=== PATIENT | male | born 1965 | race Caucasian/White ===

== ENCOUNTER 2019-04-01 08:25 | Emergency (ER) | payer OTHER ==
[~2019-04-01] VITALS: Ht 177.8 cm; Wt 102.1 kg
[2019-04-01 08:32] VITALS: Ht 177.8 cm; Wt 102.1 kg
[2019-04-01 09:04] LABS: BASOPHIL % 0.1 % (0-2); PLATELET COUNT 208 x10^3mcL (130-400); RED CELL DISTRIBUTION WIDTH 13.4 % (11.5-14.5)
[2019-04-01 09:22] LABS: CALCIUM 9.1 mg/dL (8.5-10.1); CARBON DIOXIDE 29.5 mmol/L (21-32); CHLORIDE SERUM 102 mmol/L (98-107); CREATININE SERUM 1.2 mg/dL (0.7-1.3); GFR1 > 60 mL/min; GLUCOSE SERUM 137 mg/dL (74-106); POTASSIUM SERUM 3.9 mmol/L (3.5-5.1); SODIUM SERUM 141 mmol/L (136-145)
[2019-04-01 09:26] LABS: ALBUMIN 3.8 g/dL (3.4-5.0); ALKALINE PHOSPHATASE 60 U/L (46-116); ALT/SGPT 44 U/L (16-63); AST/SGOT 22 U/L (15-37); LIPASE 76 IU/L (73-393); TOTAL PROTEIN, SERUM 7.4 g/dL (6.4-8.2)
[2019-04-01 10:15] VITALS: BP 151/93
== END 2019-04-01 10:15 | disposition home or self-care (01) ==
LOC: ED 08:25
PROVIDERS: Emergency Medicine
DX: K29.70 Gastritis, unspecified, without bleeding (principal)
CPT/HCPCS: 36415; J2270; Q0092; Q0162

== ENCOUNTER 2019-05-26 13:57 | Inpatient (IN) | payer OTHER ==
[~2019-05-26] VITALS: Ht 177.8 cm; Wt 99.8 kg
--- NOTE | 2019-05-26 15:08 | NUR ---
PATIENT PRESENTS TO ED WITH C/O ABDOMINAL PAIN THAT THE PATIENT DESCRIBES SHARP AND BURNING. STS HE HAS VOMITTED 5X TODAY AND MULTIPLE TIMES YESTERDAY. STS HE CAME TO ED IN APRIL FOR TREATMENT, BUT FELT NO RELIEF IN SIGHT. STS THE PAIN IS SITUATED IN IN ALL [address] HEREDIA PERFORMED MSE
--- NOTE | 2019-05-26 15:31 | NUR ---
PATIENT SENT TO CT
--- NOTE | 2019-05-26 15:41 | NUR ---
PT BACK FROM CT
--- NOTE | 2019-05-26 15:55 | NUR ---
PT RESTING AT BEDSIDE IN NAD. LIGHTS DIMMED AND BLANKET PROVIDED TO PROMOTE PATIENT COMFORT
[2019-05-26 15:57] LABS: BASOPHIL % 0.4 % (0-2); PLATELET COUNT 297 x10^3mcL (130-400); RED CELL DISTRIBUTION WIDTH 14.1 % (11.5-14.5)
[2019-05-26 16:04] LABS: UA SPECIFIC GRAVITY 1.025 (1.005-1.035); microscopic required? YES; urine erythrocyte 1+ (NEGATIVE)
[2019-05-26 16:24] LABS: ALBUMIN 4.1 g/dL (3.4-5.0); ALKALINE PHOSPHATASE 78 U/L (46-116); ALT/SGPT 50 U/L (16-63); AST/SGOT 13 U/L (15-37); BILIRUBIN TOTAL 0.77 mg/dL (0.20-1.00); CALCIUM 9.7 mg/dL (8.5-10.1); CARBON DIOXIDE 26.7 mmol/L (21-32); CHLORIDE SERUM 101 mmol/L (98-107); GFR1 > 60 mL/min; GLUCOSE SERUM 121 mg/dL (74-106); LIPASE 75 IU/L (73-393); SODIUM SERUM 140 mmol/L (136-145); TOTAL PROTEIN, SERUM 8.2 g/dL (6.4-8.2)
[2019-05-26 16:26] LABS: POTASSIUM SERUM 2.9 mmol/L (3.5-5.1)
--- NOTE | 2019-05-26 16:29 | NUR ---
PT RESTING AT BEDSIDE IN NAD. PATIENT STS HIS PAIN HAS DECREASED TO 5/10 AND STS THE PAIN IS MORE TOLERABLE. PATIENT IN NAD
[2019-05-26] MEDS ORDERED: DYRENIUM50 MG (17:05)
--- NOTE | 2019-05-26 17:47 | NUR ---
REPORT OFF TO NELLY MAXWELL
--- NOTE | 2019-05-26 18:00 | NUR ---
RECEIVED PT FROM ED VIA [facility], CAME IN DUE TO INCREASING ABDOMINAL PAIN SINCE YESTERDAY, STATED THAT HE HAD INTERMITTENT ABDOMINAL PAIN SINCE APRIL. AAOX4. DENIES HEADACHE/DIZZINESS. NO SOB NOTED, O2 SAT=95%, RA. DENIES CHEST PAIN/PRESSURE. STATED THAT HE HAS 9/10 LEFT ABDOMINAL PAIN DESCRIBED SHARP. ABDOMEN IS SOFT. STATED THAT HE WAS CONSTIPATED YESTERDAY AND HAD DIARRHEAL EPISODE TODAY. STATED THAT HE HAS INTERMITTENT BLOOD STOOLS EVERY TIME HE GOES BM X2 MONTHS. C/O DRY MOUTH. VOIDS. IV SITE ON THE LAC IS PATENT AND INTACT. SIDE RAILS UPX2. CALL LIGHT ON REACH. BEDSIDE REPORT GIVEN TO LAZARO FOR CONTINUITY OF CARE.
[2019-05-26 18:08] VITALS: BP 162/86
[2019-05-26 18:19] VITALS: Ht 177.8 cm; Wt 99.8 kg
[2019-05-26 18:20] LABS: MAGNESIUM 2.1 mg/dL (1.8-2.4); PHOSPHOROUS 3.5 mg/dL (2.5-4.9)
[2019-05-26 18:27] LABS: AMPHETAMINE QUAL UR NONE DETECTED (See below); T3 TOTAL 1.4 ng/mL
[2019-05-26 19:17] LABS: FREE T4 1.24 ng/dL (0.76-1.46); FREE THYROXINE INDEX 3.7 ug/dL (1.4-4.5); T4(THYROXINE) 9.8 ug/dL (4.7-13.3)
--- NOTE | 2019-05-26 19:25 | NUR ---
RECEIVED PT FROM PREVIOUS SHIFT NURSE. PT AOX3. DENIES HERMAN/DIZZINESS AT THIS TIME. TELE #[id number], READING ST WITH FIRST DEGREE BLOCK, HR 115. DENIES SOB/DIFFICULTY BREATHING, ON RA. IV TO LAC, INTACT AND PATENT. BED IN LOWEST POSITION. CALL LIGHT WITHIN REACH. WILL CONTINUE TO MONITOR.
[2019-05-26 21:19] VITALS: BP 159/94
--- NOTE | 2019-05-27 03:32 | NUR ---
PT RESTING IN BED. RR EVEN AND UNLABORED. IN NO ACUTE DISTRESS. CALL LIGHT WITHIN REACH. BED IN LOWEST POSITION. WILL CONTINUE TO MONITOR.
--- NOTE | 2019-05-27 05:13 | NUR ---
PT BP 162/90 HR 73, RATING PAIN 8/10 IN ABD. MEDICATED FOR PAIN PER EMAR. WILL CONTINUE TO MONITOR.
[2019-05-27 05:57] VITALS: BP 162/90
--- NOTE | 2019-05-27 06:23 | NUR ---
PT WORSENING PAIN, MEDICATED PER EMAR. BP 174/92. DR. ROBBINS PAGED. AWAITING CALL BACK.
[2019-05-27 06:52] LABS: PLATELET COUNT 259 x10^3mcL (130-400); RED CELL DISTRIBUTION WIDTH 14.4 % (11.5-14.5)
[2019-05-27 07:10] LABS: CALCIUM 8.7 mg/dL (8.5-10.1); CARBON DIOXIDE 27.1 mmol/L (21-32); CHLORIDE SERUM 106 mmol/L (98-107); GFR1 > 60 mL/min; GLUCOSE SERUM 131 mg/dL (74-106); POTASSIUM SERUM 3.8 mmol/L (3.5-5.1); SODIUM SERUM 142 mmol/L (136-145)
--- NOTE | 2019-05-27 07:10 | NUR ---
RECEIVED PATIENT RESTING IN BED COMFORTABLY WITH EYES CLOSED, EASILY AROUSABLE TO VERBAL STIMULI A/O X4. DENIES CHEST PAIN, BREATHING EVEN AND UNLABBORED ON ROOM AIR, DENIES SOB, NO DISTRESS NOTED. BS ACTIVE X4, DENIES N/V, BUT DID C/O SHARP/BURNING ABD PAIN 07/11, STATES PAIN IS TOLERABLE AT THIS TIME, MEDICATED IN AM BY NOC NURSE. IV TO LAC INTACT INFUSING NS AT 100 ML/HR FREE FROM REDNESS AND INFILTRATION. PATIENT IS CALM WITH CARE. INSTRUCTED TO CALL FOR ASSISTANCE IF NEEDED. SAFETY PRECAUTIONS MAINTAINED. WILL MONITOR.
[2019-05-27 07:44] LABS: BASOPHIL % 0 % (0-2)
[2019-05-27 08:50] VITALS: BP 157/90
[2019-05-27] MEDS ORDERED: HCTZ/TRIAMTEREN1 CA1 PO (08:52)
--- NOTE | 2019-05-27 08:52 | NUR ---
PATIENT RESTING IN BED COMFORTABLY, NO DISTRESS NOTED. AT BEDSIDE. UPDATED PATIENTS MED REC. ALL QUESTIONS AND CONCERNS ADDRESSED. SAFETY PRECAUTIONS MAINTAINED.
--- NOTE | 2019-05-27 10:05 | NUR ---
DR. URIBE AT BEDSIDE TO SPEAK WITH AND ASSESS PATIENT. PT TO MAINTAIN NPO STATUS FOR ULTRASOUND ABDOMEN LIMITED. PATIENT VERABALIZED UNDERSTANDING, ALL QUESTIONS AND CONCERNS ADDRESSED. SAFETY PRECAUTIONS MAINTAINED. WILL MONITOR.
--- NOTE | 2019-05-27 10:20 | NUR ---
PATIENT C/O SHARP ABD PAIN 07/11, MEDICATED WITH NORCO PO (SEE eMAR). DR. URIBE AT BEDSIDE TO SPEAK WITH PATIENT AND NOREEN REGARDING PLANS FOR EGD TOMORROW MORNING, ALL QUESTIONS AND CONCERNS ADDRESSED, CONSENTS OBTAINED AND SIGNED.
--- NOTE | 2019-05-27 14:19 | NUR ---
PATIENT RESTING IN BED COMFORTABLY WITH EYES CLOSED, BREATHING EVEN AND UNLABBROED ON ROOM AIR, NO DISTRESS NOTED. WILL MONITOR.
--- NOTE | 2019-05-27 14:35 | NUR ---
PATIENT C/O SHARP MID ABD PAIN 10/10, MEDICATED WITH MORPHINE IVP. ALL NEEDS ATTENDED TO, SAFETY PRECAUTIONS MAINTAINED. WILL MONITOR.
--- NOTE | 2019-05-27 16:00 | NUR ---
PATIENT RESTING IN BED COMFORTABLY WITH EYES CLOSED, NO DISTRESS NOTED, FAMILY AT BEDSIDE. NPO STATUS MAINTAINED PENDING US ABD, CALLED ULTRASOUND REGARDING ETA BUT NO ANSWER, WILL TRY AGAIN.
--- NOTE | 2019-05-27 16:05 | NUR ---
ULTRASOUND AT BEDSIDE.
--- NOTE | 2019-05-27 16:51 | NUR ---
PATIENT C/O SHARP MID ABD PAIN 07/11, MEDICATED WITH NORCO PO (SEE eMAR). ALL NEEDS ATTENDED TO, SAFETY PRECAUTIONS MAINTAINED. WILL MONITOR. FAMILY AT BEDSIDE.
--- NOTE | 2019-05-27 17:04 | NUR ---
RECEIVED TELEPHONE CALL FROM DR. URIBE- PATIENT UPDATE GIVEN. INFORMED DR. URIBE US ABD RESULTS ARE NOT IN YET EXAM WAS JUST DONE ABOUT 15 MINUTES AGO. RECEIVED T.O FROM DR. URIBE TO PLACE PATIENT ON A CLEAR LIQUID DIET FOR DINNER AND THEN NPO AFTER MIDNIGHT FOR EGD TOMORROW MORNING. WILL CARRY OUT ORDER AND UPDATE PATIENT. ALL QUESTIONS AND CONCERNS ADDRESSED.
[2019-05-27 17:46] VITALS: BP 154/93
--- NOTE | 2019-05-27 18:33 | NUR ---
CALLED DR. URIBE AND MADE HIM AWARE OF US ABD RESULTS. PER DR. URIBE CONSULT SURGEON FOR GALLSTONES AND IF NO SURGERY ORDER HIDA SCAN IN AM, KEEP PATIENT NPO AFTER MIDNIGHT. DR. THOMPSON MADE AWARE OF THE ABOVE. WILL NOTIFY PATIENT WELL.
--- NOTE | 2019-05-27 18:38 | NUR ---
PATIENT RESTING COMFORTABLY IN BED, UPDATED WITH PLAN OF CARE, DAUGHTER AT BEDSIDE. ALL QUESTIONS AND CONCERNS ADDRESSED. IV TO LAC INTACT INFUSING IVF WELL FREE FROM REDNESS AND INFILTRATION. ALL NEEDS ATTENDED TO DURING SHIFT, SAFETY PRECAUTIONS MAINTAINED. WILL ENDORSE CARE TO ONCOMING NURSE.
--- NOTE | 2019-05-27 19:15 | NUR ---
RECEIVED PT FROM DAY SHIFT RN. PT RESTING IN BED WITH FAMILY AT THE BEDSIDE. PT IS AA&o X 4 AND ABLE TO FOLLOW COMMANDS. PT DENIES SHORTNESS OF BREATH ON ROOM AIR NO USE OF ACCESSORY MUSCLES OR LABORED BREATHING ON ASSESSMENT. BOWEL SOUNDS ARE ACTIVE. PT COMPLAINTS OF MINOR PAIN IN ABD REGION BUT STATES THAT IT IS TOLERABLE AT THIS TIME. LAST BM 05/26. PT AWARE OF NEED FOR STOOL CULTURE AND TO CALL WHEN HE HAS A BM. PT IS AMBULATORY WITH MINIMAL ASSIST. NS RUNNING THROUGH THE LAC. IV CDI AT THIS TIME. PT AWAITING CONSULT FROM FRANKY. NPO FOR POSSIBLE PROCEDURE. SAFETY MEASURES IN PLACE. CALL LIGHT WITHIN REACH. WILL CONTINUE TO MONITOR.
--- NOTE | 2019-05-27 21:16 | NUR ---
PT RESTING IN BED WITH EYES CLOSED. NO DISTRESS NOTED AT THIS TIME.
[2019-05-27 21:27] VITALS: BP 147/82
[2019-05-28 05:18] VITALS: BP 148/92
[2019-05-28 07:00] LABS: CALCIUM 9.2 mg/dL (8.5-10.1); CHLORIDE SERUM 101 mmol/L (98-107); CREATININE SERUM 0.9 mg/dL (0.7-1.3); GFR1 > 60 mL/min; GLUCOSE SERUM 111 mg/dL (74-106); MAGNESIUM 1.9 mg/dL (1.8-2.4); PHOSPHOROUS 2.9 mg/dL (2.5-4.9); POTASSIUM SERUM 3.2 mmol/L (3.5-5.1); SODIUM SERUM 137 mmol/L (136-145)
[2019-05-28 07:31] LABS: BASOPHIL % 0 % (0-2); PLATELET COUNT 240 x10^3mcL (130-400); RED CELL DISTRIBUTION WIDTH 14.2 % (11.5-14.5)
--- NOTE | 2019-05-28 07:53 | NUR ---
PT TAKEN SOEN FOR EGD.
--- NOTE | 2019-05-28 08:05 | NUR ---
RECIEVED PT RESTING IN BED WITH NO C/O DISTRESS OR SOB AT THIS TIME. AT BEDSIDE. PT STATES PAIN IS TOLERABLE AND NO PAIN MEDICATION IS REQUESTED. A/O X4 WITH NO HERMAN OR DIZZINESS. LUNGS CTA. PT AMBULATORY. LAC INTACT AND PATENT WITH NO REDNESS OR INFLAMMATION. RUNNING 100ML/NS .SAFETY PRECAUTIONS IN PLACE, CALL LIGHT WITHIN REACH, WILL MONITOR.
--- NOTE | 2019-05-28 09:30 | NUR ---
DR ESCOTO AT BEDSIDE WITH PT DISCUSSING POC. AT BEDSIDE.
--- NOTE | 2019-05-28 09:31 | NUR ---
PT BACK FROM EGD PROCEDURE
[2019-05-28 17:22] VITALS: BP 138/89
--- NOTE | 2019-05-28 18:00 | NUR ---
PT TAKEN DOWN TO SURGERY BY OR TECH. CHECKLIST COMPLETE AND CONSENT FOR SURGERY SIGNED. ANASTHESIA CONSENT TO BE SIGNED IN OR ROOM. ALL PRE-OP COMPLETED.
--- NOTE | 2019-05-28 18:58 | NUR ---
PT CURRENTLY IN SURGERY. PT TOLERATED ALL CARES WELL. IV WAS INTACT AND PATENT WHEN LEFT TO SURGERY. WILL ENDORSE TO NIGHT NURSE
--- NOTE | 2019-05-28 19:15 | NUR ---
RECEIVED REPORT FROM DAYSHIFT NURSE, PT STILL IN OR AT THIS TIME. WILL WAIT FOR REPORT FORM OR.
[2019-05-28 22:23] LABS: PLATELET COUNT 240 x10^3mcL (130-400); RED CELL DISTRIBUTION WIDTH 14.4 % (11.5-14.5)
[2019-05-28 22:29] LABS: CALCIUM 8.2 mg/dL (8.5-10.1); CARBON DIOXIDE 24.3 mmol/L (21-32); CHLORIDE SERUM 103 mmol/L (98-107); GFR1 > 60 mL/min; GLUCOSE SERUM 141 mg/dL (74-106); POTASSIUM SERUM 3.8 mmol/L (3.5-5.1); SODIUM SERUM 139 mmol/L (136-145)
[2019-05-28 22:33] LABS: BAND NEUTROPHIL 1 % (0-10); MONOCYTE 4 % (0-7); SEGMENTED NEUTROPHILS 90 % (37-75)
[2019-05-28 22:34] LABS: ALKALINE PHOSPHATASE 53 U/L (46-116); ALT/SGPT 105 U/L (16-63); AST/SGOT 106 U/L (15-37); BILIRUBIN TOTAL 1.5 mg/dL (0.20-1.00); PLATELET MORPHOLOGY PLATELETS NORMAL; rbc morphology (normal/abnorm) NORMAL (NORMAL)
[2019-05-28 22:47] LABS: ALBUMIN 2.6 g/dL (3.4-5.0)
--- NOTE | 2019-05-28 23:30 | NUR ---
RECEIVED PT FROM OP, PT APPEARS GROGGY BUT ABLE TO ANSWER QUESTIONS. PER OR, PT HAD ATTEMPTED RE WHICH CONVERTED TO OPEN W/ INTRAOP CHOLEANGIOGRAM. PT UNDER SX WITH GENERAL ANESTHESIA, WITH 5 ABD INCISIONS. PER OR TEAM (D/T PT ABD COVERED WITH TELFA 4X4 AND "MEDIPORT" DSG) PT HAS ONE LARGE INCISION CLOSED WITH SUTURES AND CHERI, THREE SMALL INCISIONS ALSO CLOSED WITH SUTURES AND CHERI COVRED WITH BANDAIDS. CDI. ONE INCISION FOR KELLE DRAIN WHICH WAS PLACED CONNECTED TO A BULB SUCTION WITH DARK RED RSECRETIONS NOTED (OR TEAM EMPTIED 25ML FROM BULB). DRAIN SPONGE IN PLACE. PT HAD SHERMAN CATH REMOED POST OP WITH 325ML OUTPUT. PT RECEIVED A DOSE OF ZOSYN IN OR, 3.3L LR IN TOTAL. OF CONCERN, PT HAS EBL= 1200 WITH NO BLOOD TRANSFUSION PERFORM. STAT CBC ORDERED WITH H/H= 14.2/40. PT SKIN APPROPRIATE FOR ETHNICITY. EXTREMITIES WARM AND CAP REFILL < 3SEC. PT RECEIVED DILAUDID 2MG IV X 3 DOSES IN OR FOR SEVERE PAIN WELL TORADOL 30MG IV X1 AND DEMORAL 25MG IVP X2. PT DESATURATED PER OR TEAM WHICH IS WHY PT IS ON 4LNC. WILL ATTEMPT TO WEAN OFF LATER WHEN ANESTHESIA WEARS OFF D/T PT HAS SHALLOW BREATHING WITH O2 SAT= 95% ON 4LNC. SUPPORTIVE FAMILY AT BEDSIDE, ALL QUESTIONS AND CONCERNS ADDRESSED, CALL LIGHT WITHIN REACH, BED IN LOWEST POSITION, WILL CONTINUE TO MONITOR.
[2019-05-28 23:45] VITALS: BP 122/71
--- NOTE | 2019-05-28 23:45 | NUR ---
PT REPORTING NAUSEA, MEDICATED WITH ZOFRAN 4MG IVP, IV SITE PATENT TO THE RT WRIST WHICH WAS INSERTED IN OR, NO REDNESS, SWELLING OR PAIN NOTED. WILL CONTINUE TO MONITOR.
[2019-05-29] VITALS (10 sets, daily range): BP systolic 109–126; BP diastolic 63–79
--- NOTE | 2019-05-29 05:05 | NUR ---
PT RESTED IN INTERVALS DURING SHIFT, NO ACUTE CHANGES OCCURRING OVERNIGHT. PT MEDICATED X2 WITH MORPHINE FOR SEVERE PAIN S/P OPEN RE. PT REMAINS ON 2LNC, WILL ATTEMPT TO WEAN OFF THIS AM. PT KELLE DRAINED 35ML SANGANEOUS FLUID, PT HAS NOT PASSED GAS OR VOIDED YET SINCE SURGERY. EDUCATED PT TO NOTIFY NURSE IF HE PASSES GAS WHICH IS A GREAT SIGN S/P ABD SURGERY. PT VERBALIZES UNDERSTANDING. IV SITE REMAINS PATENT TO RT WRIST, D5 1/2 NS @ 125ML/HR. NO REDNESS, SWELLING OR PAIN NOTED. PT TOLERATING ANTIBIOTICS WELL. ABD DSG REMAINS CDI. ALL COMFORT AND SAFETY MEASURES PROVIDED FOR, CALL LIGHT WITHIN REACH, BED IN LOWEST POSITION, WILL CONTINUE TO MONITOR.
[2019-05-29 06:25] LABS: PLATELET COUNT 241 x10^3mcL (130-400); RED CELL DISTRIBUTION WIDTH 13.6 % (11.5-14.5)
[2019-05-29 06:49] LABS: ALKALINE PHOSPHATASE 62 U/L (46-116); ALT/SGPT 142 U/L (16-63); AST/SGOT 140 U/L (15-37); BILIRUBIN TOTAL 0.76 mg/dL (0.20-1.00); CALCIUM 8.5 mg/dL (8.5-10.1); CARBON DIOXIDE 24.6 mmol/L (21-32); CHLORIDE SERUM 102 mmol/L (98-107); GFR1 > 60 mL/min; GLUCOSE SERUM 153 mg/dL (74-106); POTASSIUM SERUM 3.9 mmol/L (3.5-5.1); SODIUM SERUM 137 mmol/L (136-145); TOTAL PROTEIN, SERUM 6.2 g/dL (6.4-8.2)
[2019-05-29 06:53] LABS: ALBUMIN 2.5 g/dL (3.4-5.0)
[2019-05-29 07:01] LABS: BASOPHIL % 0 % (0-2)
[2019-05-29 07:04] LABS: MAGNESIUM 1.8 mg/dL (1.8-2.4); PHOSPHOROUS 4.3 mg/dL (2.5-4.9)
--- NOTE | 2019-05-29 07:40 | NUR ---
RECEIVED PT FROM FRAME STYLIST RN. A/OX4. MED SURG. DENIES CHEST PAIN/PRESSURE. RESPIRATIONS EQUAL AND UNLABORED ON RA. DENIES SOB. PT C/O ABDOMINAL PAIN TO RUQ OPERATIVE SITE. MEDICATED PER EMAR. DRESSING TO RUQ CDI, NO DRAINAGE NOTED. KELLE DRAIN X1 DRAINING SEROSANGINEOUS DRAINAGE. IV TO RH PATENT AND INFUSING. NO REDNESS OR SWELLING NOTED. PT DENIES ANY N/V AT THIS TIME. WILL CONTINUE TO MONITOR. CALL LIGHT IN REACH. BED IN LOWEST POSITION.
--- NOTE | 2019-05-29 08:44 | NUR ---
PT SITTING UP IN BED. NO ACUTE RESP DISTRESS NOTED ON 2L NC. PT C/O OF ABDOMINAL PAIN SHARP TO OPERATIVE SITE. DRESSING CDI. MEDICATED PER EMAR. FAMILY AT BEDSIDE. IV PATENT AND INFUSING TO RT WRIST. NO REDNESS OR SWELLING NOTED. WILL CONTINUE TO MONITOR. CALL LIGHT IN REACH. BED IN LOWEST POSITION.
--- NOTE | 2019-05-29 09:26 | NUR ---
PT SITTING UP IN BED. NO ACUTE RESP DISTRESS NOTED ON RA. PT STATES PAIN HAS IMPROVED SINCE RECEIVING NOROC, BUT IS INCREASING. IV FLUIDS INFUSING ORDERED. NO REDNESS OR SWELLING NOTED. PT GIVEN PO MEDS. TOLERATED WELL. PT STATES HE ATE A LITTLE BIT OF BREAKFAST. PT DENIES ANY NAUSEA AT THIS TIME. WILL CONTINUE TO MONITOR. CALL LIGHT IN REACH. BED IN LOWEST POSITION.
--- NOTE | 2019-05-29 10:53 | NUR ---
PT SITTING UP IN BED. PT DENIES ANY SOB AT THIS TIME. PT ASKING IF HE CAN HAVE NC REMOVED. PT PLACED ON RA. NO ACUTE RESP DISTRESS NOTED. PT C/O ABDOMINAL PAIN SHARP TO OPERATIVE SITE. MEDICATED PER EMAR. IV TO RH FLUSHED WELL. PATENT AND INFUSING. NO REDNESS OR SWELLING NOTED. WILL CONTINUE TO MONITOR. CALL LIGHT IN REACH. BED IN LOWEST POSITION.
--- NOTE | 2019-05-29 12:06 | NUR ---
PT SITTING UP IN BED. PT C/O INCREASING ABDOMINAL PAIN TO RUQ. PT ENCOURAGED TO AMBULATE TO HELP PASS GAS AND ALIEVIATE PRESSURE. PT AMBULATED TO BATHROOM AND AROUND THE ROOM. TOLERATED WELL. NO ACUTE RESP DISTRESS NOTED ON RA. PT ENCOURAGED TO AMBULATE TOLERATED. WILL CONTINE TO MONITOR. CALL LIGHT IN REACH. BED IN LOWEST LOCKED POSITION.
--- NOTE | 2019-05-29 12:27 | NUR ---
PATIENT WAS SEEN UP IN THE HALLWAY WALKING SLOWLY BUT STEADY, DENIES DIZZINESS. PATIDARIANN REPORTS HE HAS BE BURPING BUT NOT PASSED GAS YET. ABLE TO AMBULATE TO RESTROOM WHERE HE REPORTED HE URINATED WITHOUT PAIN. ADMINSTERED MEDICATIONS PER JAN. PATIENT COMPLAINING OF PAIN TO THE ABDOMEN. CANNOT MEDICATED WITH NORCO UNTIL 1240. PATIENT RESTING IN BED. FAMILY AT BEDSIDE, CALL LIGHT WITHIN REACH
--- NOTE | 2019-05-29 12:43 | NUR ---
ADMINISTERED NORCO PER PAIN, FAMILY AT BEDSIDE, ENCOURAGED USE OF INSENTIVE SPIROMETE. PALL LIGHT WITHIN REACH
--- NOTE | 2019-05-29 14:22 | NUR ---
PATIENT STILL EXPEREINCEING PAIN IN HIS ABDOMEN, DRESSING CDI, ABD SOFT AND SLIGHTLY DISTENDED. CANNOT ADMNISTER PAIN MEDICATION AT THIS TIME UNTIL 1450. PATIENT REQUESTING MORPHINE AT THIS TIME. FAMILY AT BEDSIDE AND CALL LIGHT WITHIN REACH
--- NOTE | 2019-05-29 15:04 | NUR ---
ADMINISTERED MORPHINE PER PRN ORDER. ASLO ADMINISTERED ZOFRAN FOR NAUSEA. INFOMRED PATIENT I WOULD REASSES PAIN IN 30 MIN, AT THAT TIME PATIENT NEEDS TO GET UP TO AMBULATE. PATIENT REPORTS THAT HE HAS PASSED A LITTLE GAS AND HAS BEEN BURPING
--- NOTE | 2019-05-29 16:49 | NUR ---
PATIENT COMPLAININ GOF 07/11 PAINN TO THE ABD. ADMINISTERED NORCO PER JAN. WILL REASSESS PAIN IN 1 HOUR. PATIENT SITTING UP IN BED WITH FAMILY MEMBER AT BEDSIDE
--- NOTE | 2019-05-29 18:21 | NUR ---
PATIENT WILL RECEIVED HIDA SCAN AT [phone] TOMORROW AND MUST BE NPO AFTER MIDNIGHT AND CANNOT RECEIVE OPIATES. INFOMRED PATIENT, CHARGE NURSE AND WILL INFORM NOC NURSE
--- NOTE | 2019-05-29 18:53 | NUR ---
PATIENT ASLEEP AT THIS TIME, INFORMED FAMILY THAT PATIENT CAN HAVE PAIN MEDICATION LAST DOSE 4 HOURS BEFORE HIS PROCEDURE.
--- NOTE | 2019-05-29 19:56 | NUR ---
PT RECIEVED AAO WITH FAMILY AT THE BEDSIDE,IV INFUSING WELL WITH THE SITE PATENT AND INTACT,ABDO IS SOFT WITH ACTIVE BOWEL SOUNDS DRESSING ON THE ABDO IS CDI,PATIENT BEING ENCOURAGE TO AMBULATE,PT WITH C/O OF ABDO PAIN CRAMPING IN NATURE AT THE SCALE OF 5/10,PT WAS MEDICATED WITH NORCO 1 TAB PO ORDER, BED IN THE LOW POSITION AND LOCKED,CALL LIGHT EASY REACHED AND WILL CONTINUE TO MONITOR.
--- NOTE | 2019-05-29 20:06 | NUR ---
PT AMBULATING IN THE HALLWAY WITH THE FAMILY AT THIS TIME.
--- NOTE | 2019-05-29 21:56 | NUR ---
PT PASSING GAS AND BURPING WILL CONTINUE TO MONITOR.
--- NOTE | 2019-05-30 01:13 | NUR ---
PT SLEEPING SOUNDLY AND WILL CONTINUE TO MONITOR.
--- NOTE | 2019-05-30 05:07 | NUR ---
PT AMBULATING IN THE HALLWAY,PT NPO FOR THE PROCEDURE THIS AM HIDA SCAN AWARE AND COOPERATIVE,WILL CONTINUE TO MONITOR AND
[2019-05-30 06:03] VITALS: BP 141/82
[2019-05-30 06:22] LABS: PLATELET COUNT 246 x10^3mcL (130-400); RED CELL DISTRIBUTION WIDTH 14.1 % (11.5-14.5)
[2019-05-30 06:55] LABS: ALKALINE PHOSPHATASE 61 U/L (46-116); ALT/SGPT 112 U/L (16-63); AST/SGOT 58 U/L (15-37); BILIRUBIN TOTAL 0.67 mg/dL (0.20-1.00); CALCIUM 8.8 mg/dL (8.5-10.1); CARBON DIOXIDE 26.4 mmol/L (21-32); CHLORIDE SERUM 104 mmol/L (98-107); CREATININE SERUM 1.1 mg/dL (0.7-1.3); GFR1 > 60 mL/min; GLUCOSE SERUM 134 mg/dL (74-106); MAGNESIUM 1.9 mg/dL (1.8-2.4); PHOSPHOROUS 2.8 mg/dL (2.5-4.9); POTASSIUM SERUM 3.5 mmol/L (3.5-5.1); SODIUM SERUM 144 mmol/L (136-145)
--- NOTE | 2019-05-30 07:05 | NUR ---
RECEIVED HAND OFF REPORT FROM ADDIE MORAN NURSE. PATIENT FOUND SITTING UP AWAKE IN BED. TRANSPORT CAME WITH WHEELCHAIR TO TAKE PATIENT FOR HIDA SCAN. PATIENT WAS REPORTED NPO AFTER MIDNIGHT AND HAS NOT HAD OPIOIDS IN LAST 4 HOURS. SALING LOCK TO RIGHT HADNA ND LEFT AC. PATIENT AMBULATED TO RESTROOM WHERE HE VOIDED AND SAT IN WHEELCHAIR. OFF UNIT AT THIS TIME
[2019-05-30 07:19] LABS: BASOPHIL % 0 % (0-2)
[2019-05-30 07:20] LABS: ALBUMIN 2.9 g/dL (3.4-5.0); TOTAL PROTEIN, SERUM 6.1 g/dL (6.4-8.2)
[2019-05-30 10:15] VITALS: BP 127/81
--- NOTE | 2019-05-30 10:15 | NUR ---
PATIETN VISUALISED RESTING SUPINE IN BED AT THIS TIME. EYES CLOSED, BREATHING STEADY AND UNLABORED. APPARENTLY ASLEEP. NO FAMILY BEDSIDE, CALL LIGHT WITHIN REACH.
--- NOTE | 2019-05-30 13:34 | NUR ---
DR HOFF CALLED AND ASKED ABOUT PATIENT, ASKED GURWINDER RESULTS OF HIDA SCAN, INFOMRED DR THAT SCAN RESULTS HWERE NOT AVAILABLE YET. HE SAID TO CALL RADIOLOGY AND HAVE THEM REVIWE THE SACN STAT. THEN TO CALL HIM WITH THE RESULTS. CALLED RADIOLOGY AND NO ANSWER
--- NOTE | 2019-05-30 13:44 | NUR ---
PATIENT IV IN RIGHT HAND LEAKING. CHANGED FKUID TO LEFT AC IV. FLUSHES WELL. PATIENT COMPLAINING OF PAIN 06/10 TO ABD, REQUESTED NORCO. WILL REASSESS PAIN IN 1 HOUR AFTER PAIN MEDICATION
--- NOTE | 2019-05-30 14:00 | NUR ---
RADIOLOGY INFORMED THAT DR HOFF REQUESTING HIDA SCAN REPORT STAT. RESULTS FAXED TO US AND REPORT PRINTED.
--- NOTE | 2019-05-30 15:12 | NUR ---
SECOND ATTEMPT TO PAGE DR HOFF FOR RESULT OF HIDA SCAN.
--- NOTE | 2019-05-30 16:25 | NUR ---
SPOKE WITH DR ESCOTO ABOUT PENDING ORDERS FOR STOOL TESTS, DECIDED TO DC ORDERS.
[2019-05-30 17:15] VITALS: BP 137/88
--- NOTE | 2019-05-30 17:18 | NUR ---
ADMINISTERED MEDICATIONS PER MAR, PATIENT COMPLAINING OF 9/10 ABD PAIN, REQUESTED NORCO. FAMILY AT BEDSIDE.
--- NOTE | 2019-05-30 18:19 | NUR ---
CALLED DR HOFF AND READ HIM RESULT OF HIDA SCAN THAT WERE FAXED TO [facility]. RESULTS STILL AREN'T AVAILABLE ONLINE. DR HOFF GAVE ORDERS TO D/C KELLE DRAIN ON 05/31 IN AM, PATIENT IS CLEAR FOR D/C TOMORROW AND RECOMMENDED TO D/C PATIENT ON LEVOQUIN AND FLAGYL PO. DR THOMPSON NOTIFIED ALL THE ABOVE.
--- NOTE | 2019-05-30 20:00 | NUR ---
RECIEVED HAND OFF REPORT FROM NURSE NAHEED. PT IS A/OX4. PT IS MED SURG, DENIES ANY CHEST PAIN OR SOB AT THIS TIME. NO EDEMA NOTED , PULSES ARE PALPABLE. PT IS ON RA, LUNG SOUNDS ARE CLEAR BILATERALLY. BREATHES ARE EVEN AND UNLABORED. PT BOWEL SOUNDS ARE HYPOACTIVE, LAST MB 05/26, ABD IS DISTENDED AND SOFT. PT IS C/O F PAIN IN ABD AREA, WILL MEDICATE PER MD ORDERS. PT VOIDS. PT AMBULATORY WITH MINOR MILD WEAKNESS. PT AB INSCION CDI, KELLE FRAINAGE INTACT, NO OUTPUT NOTED. ABD INCISION COVERED WITH BANDAID, TELFA, AND MEDIPORT TAPE ALL OVER IN PLACE. PT HAS IV TO LAC INFUSING WELL, IV TO RW S/L. CALL LIGHT WITHIN REACH, WILL CONTINUE TO MONITOR.
--- NOTE | 2019-05-30 20:45 | NUR ---
PT AMBULATING HALLS WITH FAMILY MEMBERS AT THIS TIME. GAIT STEADY. NO ACUTE DISTRESS OBSERVED. IVF INFUSING WELL. WILL CONTINUE TO MONITOR
[2019-05-30 21:10] VITALS: BP 149/86
--- NOTE | 2019-05-31 00:38 | NUR ---
PT IN BED ASLEEP. EASILY AROUSABLE TO VERBAL COMMANDS. PT DENIES OF ANY PAIN AT THIS TIME. CALL LIGHT WITHIN REACH. WILL CONTINUE TO MONITOR.
--- NOTE | 2019-05-31 06:17 | NUR ---
PT SLEPT THROUGH THE NIGHT. NO RESP DISTRESS NOTED. PT C/O OD ABD PAIN RECEIVED NORCO X2. PT KELLE DRAINAGE OUTPUT 65 ML COLOR WAS PINK, CLAMP TO BULB SUCTION. PT IV TO THE LAC INFUSING WELL, CDI. PT WAS COOPERATIVE WITH NURSING CARE.
[2019-05-31 06:19] VITALS: BP 147/91
[2019-05-31 06:51] LABS: BASOPHIL % 0.3 % (0-2); PLATELET COUNT 318 x10^3mcL (130-400); RED CELL DISTRIBUTION WIDTH 13.8 % (11.5-14.5)
[2019-05-31 07:08] LABS: CALCIUM 9.6 mg/dL (8.5-10.1); CARBON DIOXIDE 26.8 mmol/L (21-32); CHLORIDE SERUM 103 mmol/L (98-107); CREATININE SERUM 0.9 mg/dL (0.7-1.3); GFR1 > 60 mL/min; GLUCOSE SERUM 120 mg/dL (74-106); MAGNESIUM 2.1 mg/dL (1.8-2.4); PHOSPHOROUS 3.8 mg/dL (2.5-4.9); SODIUM SERUM 142 mmol/L (136-145)
--- NOTE | 2019-05-31 07:40 | NUR ---
A+OX4, NO RESPIRATORY DISTRESS NOTED, MEDSURG, PULSES MODERATE AND EQUAL, NO EDEMA NOTED, LUNG SOUNDS CTA, TOLERATING RA, BOWEL SOUNDS HYPOACTIVE, KELLE DRAIN= 100 ML SEROSANGINOUS FLUID EMPTIED FROM DRAIN, DR ESCOTO NOTIFIED, VOIDING FREELY, GENERALIZED WEAKNESS, AMBUALTORY, ABD INCISION X5, 3 COVERED WITH BAND AIDS, ENTIRE ABD COVERED IN DRESSING WITH TAPE, CDI, IV IN LAC INFUSING D5 1/2 NS @ 50 ML/HR, SITE WNL, IV IN RW WRIST SALINE LOCKED, SITE WNL.
--- NOTE | 2019-05-31 07:48 | NUR ---
DR ESCOTO STATES SHE WILL SPEAK TO DR HOFF ABOUT 1OO ML FLUID DRAINED FROM KELLE DRAIN AND DO NOT REMOVE THE KELLE DRAIN UNTIL SHE CONFIRMS WITH DR HOFF.
[2019-05-31 08:38] VITALS: BP 137/90
--- NOTE | 2019-05-31 09:39 | NUR ---
PT RESTING IN BED, NO RESPIRATORY DISTRESS NOTED, STATES ABD PAIN TOLERABLE AT THIS TIME, CALL LIGHT WITHIN REACH, AT BEDSIDE.
--- NOTE | 2019-05-31 09:48 | NUR ---
PER DR ESCOTO, DR HOFF STATED TO LEAVE KELLE DRAIN IN AND PT NOT TO DC TODAY.
[2019-05-31] MEDS ORDERED: LEVAQUIN750 MG PO (10:05)
[2019-05-31] MEDS ORDERED: FLA500 PO (10:07)
--- NOTE | 2019-05-31 10:18 | NUR ---
100 ML SEROSANGUINOUS FLUID EMPTIED FROM KELLE DRAIN.
--- NOTE | 2019-05-31 11:03 | NUR ---
PT COMPLAINING OF 8/10 ABD PAIN, NORCO PO GIVEN, NO RESPRIATORY DISTRESS NOTED, PT REQUESTING TO HAVE LACTINEX AND ZOSYN GIVEN NOW BECAUSE HE WOULD LIKE TO TAKE A NAP. CALL LIGHT WITHIN REACH.
--- NOTE | 2019-05-31 11:53 | NUR ---
PSYCHIC READER OFFERED PT BED BATH AND PT REFUSED.
--- NOTE | 2019-05-31 14:30 | NUR ---
PT UPSET THAT PT HAS NOT BEEN GIVEN BED BATH. PT NOTIFIED THAT INSURANCE ADMINISTRATOR OFFERED TO GIVE PT BED BATH EARLIER AND PT REFUSED. STATES THAT DOESNT MATTER AND REQUESTING BAD BATH NOW. CHANDRA FRAGOSO AT BEDSIDE TO ASSIST PT WITH BED BATH. REQUESTING TO SPEAK TO CHARGE NURSE.
--- NOTE | 2019-05-31 14:52 | NUR ---
CHARGE NURSE ILA AT BEDSIDE TO SPEAK TO AND PT. PT COMPLAINING OF 8/10 ABD PAIN, NORCO PO GIVEN, NO RESPIRATORY DISTRESS NOTED, CALL LIGHT WITHIN REACH.
--- NOTE | 2019-05-31 16:16 | NUR ---
PT RESTING IN BED, NO RESPIRATORY DISTRESS NOTED, APPEARS TO BE SLEEPING, CALL LIGHT WITHIN REACH.
[2019-05-31 18:48] VITALS: BP 144/91
--- NOTE | 2019-05-31 18:51 | NUR ---
PT COMPLAINING OF ABD PAIN 07/11, NORCO PO GIVEN, NO RESPRIATORY DISTRESS NOTED, 40 ML FLUID EMPTIED FROM KELLE DRAIN. PT ENCOURAGED TO AMBULATE. PT AMBULATED AROUND UNIT WITH FAMILY.
--- NOTE | 2019-05-31 19:25 | NUR ---
ENDORSED CARE TO HERNAN VILLEGAS.
--- NOTE | 2019-05-31 19:56 | NUR ---
AWAKE AND ALERT, ORIENTED TO NAME, PLACE, TIME AND SITUATION. SPEECH CLEAR AND APPROPRIATE. BREATHING EVEN AND UNLABORED ON ROOM AIR. IVF OF D5 1/2 NS AT 50ML/HR. CALL LIGHT WITHIN EASY REACH. ENCOURAGED TO AMBULATE.
[2019-05-31 21:05] VITALS: BP 141/90
--- NOTE | 2019-05-31 22:47 | NUR ---
EYES CLOSED, BREATHING EVEN AND UNLABORED. HOB ELEVATED 30 DEG. CALL LIGHT WITHIN EASY REACH.
--- NOTE | 2019-05-31 23:53 | NUR ---
EYES CLOSED, BREATHING EVEN AND UNLABORED ON ROOM AIR. IVF INFUSING WELL. CALL LIGHT WITHIN EASY REACH.
--- NOTE | 2019-06-01 00:10 | NUR ---
DRAINED 40ML SEROSANGUINEOUS FLUID FROM KELLE BULB
--- NOTE | 2019-06-01 05:30 | NUR ---
PT AMBULATED IN HALLWAY, STATED BURPING AND PASSING GAS. HAS NOT PASSED STOOL.
[2019-06-01 05:53] VITALS: BP 158/95
[2019-06-01 06:01] LABS: BASOPHIL % 0.3 % (0-2); PLATELET COUNT 353 x10^3mcL (130-400); RED CELL DISTRIBUTION WIDTH 14.2 % (11.5-14.5)
--- NOTE | 2019-06-01 06:02 | NUR ---
INFORMED DR. ROBBINS BP THIS AM IS 158/95. NO NEW ORDERS
--- NOTE | 2019-06-01 06:08 | NUR ---
CHANDRA ROMAN ASKED PT IF HE WOULD LIKE A BED BATH. PT STATED "NO, NOT RIGHT NOW"
--- NOTE | 2019-06-01 06:23 | NUR ---
ON BED, BREATHING EVEN AND UNLABORED ON ROOM AIR. IVF OF D5 1/2 NS INFUSING WELL TO IV SITE TO LEFT AC. IV SITE FREE FROM ERYTHEMA OR SWELLING. HOB ELEVATED 30 DEG. CALL LIGHT WITHIN EASY REACH.
[2019-06-01 06:32] LABS: ALKALINE PHOSPHATASE 59 U/L (46-116); ALT/SGPT 110 U/L (16-63); AST/SGOT 61 U/L (15-37); BILIRUBIN TOTAL 0.8 mg/dL (0.20-1.00); CALCIUM 9.3 mg/dL (8.5-10.1); CARBON DIOXIDE 29.8 mmol/L (21-32); CHLORIDE SERUM 101 mmol/L (98-107); GFR1 > 60 mL/min; GLUCOSE SERUM 136 mg/dL (74-106); MAGNESIUM 2.1 mg/dL (1.8-2.4); PHOSPHOROUS 4.1 mg/dL (2.5-4.9); POTASSIUM SERUM 3.3 mmol/L (3.5-5.1); SODIUM SERUM 140 mmol/L (136-145); TOTAL PROTEIN, SERUM 6.7 g/dL (6.4-8.2)
[2019-06-01 06:43] LABS: ALBUMIN 2.6 g/dL (3.4-5.0)
--- NOTE | 2019-06-01 07:17 | NUR ---
EYES CLOSED, EASILY AWAKENED. BREATHING UNLABORED. IN NO ACUTE DISTRESS. ENDORSED TO NURSE HARMONY
--- NOTE | 2019-06-01 07:20 | NUR ---
RECEIVED REPORT FROM HERNAN VILLEGAS. PATIENT RESTING COMFORTABLY IN BED. INCISIONS TO ABDOMEN ARE COVERED WITH ISLAND DRESSING. CDI. KELLE DRAIN IN PLACE DRAINING SEROSANGUINEOUS FLUID. IV TO LAC IS PATENT AND INFUSING D5 1/2 NS @ 50 ML/HR. NO REDNESS OR PAIN. PT ON ROOM AIR. NO C/O SOB AND NO DISTRESS NOTED. ALL QUESTIONS AND CONCERNS ADDRESSED.
--- NOTE | 2019-06-01 08:25 | NUR ---
DR NEWMAN PAGED FOR K 3.3 COVERAGE. AWAITING RESPONSE.
[2019-06-01 09:21] VITALS: BP 163/94
--- NOTE | 2019-06-01 13:20 | NUR ---
DR NEWMAN PAGED AGAIN TO REQUEST K 3.3 COVERAGE. AWAITING RESPONSE.
--- NOTE | 2019-06-01 13:47 | NUR ---
SPOKE WITH DR NEWMAN AND NOTIFIED OF K 3.[address] ORDERS.
--- NOTE | 2019-06-01 14:50 | NUR ---
IN TO ADMINISTER POTASSIUM REPLACEMENT PER MD ORDER. PT RESTING COMFORTABLY IN BED WITH DAUGHTER AT BEDSIDE.
[2019-06-01 16:46] VITALS: BP 164/95
--- NOTE | 2019-06-01 19:20 | NUR ---
PT RECIEVED FROM THE DAY SHIFT RN. PT IS ALERT AND ORIENTED X4, IS AT THE BEDSIDE, PT IS CALM AND COOPERATIVE WITH CARE AT THIS TIME. NO COMPLAINT OF NAUSEA OR PAIN AT THIS TIME. SAFETY AND COMFORT MEASURES MAINTAINED, BED IN LOWEST POSITION, CALL LIGHT WITHIN REACH.
--- NOTE | 2019-06-01 19:40 | NUR ---
REPORT GIVEN TO RAEANN VILLEGAS. PT RESTING COMFORTABLY IN BED WITH FAMILY AT BEDSIDE. ALL NEEDS MET. ALL QUESTIONS AND CONCERNS ADDRESSED. ALL CARES ENDORSED.
[2019-06-01 20:04] VITALS: BP 142/97
--- NOTE | 2019-06-02 00:10 | NUR ---
PT IS RESTING IN BED WITH EYES CLOSED AT THIS TIME. NO ACUTE DISTRESS NOTED. PT HAS BEEN CALM AND COOPERATIVE WITH CARE,IV INFUSING AND INTACT, NO S/S OF PAIN NOTED. SAFETY AND COMFORT MEASURES MAINTAINED, BED IN LOWEST POSITION, CALL LIGHT WITHIN REACH.
--- NOTE | 2019-06-02 00:52 | NUR ---
PT COMPLAINING OF NAUSEA, IVP ZOFRAN GIVEN.
--- NOTE | 2019-06-02 01:38 | NUR ---
PT IS RESTING IN BED WITH EYES CLOSED AT THIS TIME. NO ACUTE DISTRESS NOTED. NO S/S OF PAIN AT THIS TIME. SAFETY AND COMFORT MEASURES MAINTAINED, BED IN LOWEST POSITION, CALL LIGHT WITHIN REACH.
--- NOTE | 2019-06-02 03:11 | NUR ---
PT IS RESTING IN BED WITH EYES CLOSED AT THIS TIME. NO ACUTE DISTRESS NOTED. NO S/S OF PAIN NOTED. PT HAS BEEN CALM AND COOPERATIVE WITH CARE. SAFETY AND COMFORT MEASURES MAINTAINED, BED IN LOWEST POSITION, CALL LIGHT WITHIN REACH.
--- NOTE | 2019-06-02 04:06 | NUR ---
PT IS AWAKE IN BED AT THIS TIME. PT HAS NO COMPLAINT OF NAUSEA OR PAIN AT THIS TIME. PT HAS BEEN CALM AND COOPERATIVE WITH CARE. NO ACUTE DISTRESS NOTED. SAFETY AND COMFORT MEASURES MAINTAINED, BED IN LOWEST POSITION, CALL LIGHT WITHIN REACH. WILL CONTINUE TO MONITOR AT THIS TIME.
--- NOTE | 2019-06-02 05:07 | NUR ---
PT HAS RESTED IN INTERMITTENT INTERVALS AT THIS TIME. NO ACUTE DISTRESS NOTED. PT WAS COMPLAINING OF NAUSEA EARLIER IN THE SHIFT, WAS MEDICATED EARLIER WITH ZOFRAN ( SEE MAR) PT HAS BEEN CALM AND COOPERATIVE WITH CARE. IV INFUSING AND INTACT AT THIS TIME. SAFETY AND COMFORT MEASURES MAINTAINED, BED IN LOWEST POSITION, CALL LIGHT WITHIN REACH. WILL ENDORSE CONTINUITY OF CARE TO THE ONCOMING RN.
[2019-06-02 05:47] VITALS: BP 145/96
--- NOTE | 2019-06-02 07:05 | NUR ---
RECEIVED BEDSIDE REPORT FROM ESTHETICS INSTRUCTOR NURSE. PATIENT IS STABLE ON ROM AIR, NO APPARENT SIGNS OF PAIN, SOB, OR RESPIRATORY DISTRESS. IV TO LEFT WRIST IS INFUSING D5, 1/2NS AT 50ML/HR. NO EDEMA OR ERYTHEMA NOTED AT SITE. SCD'S IN PLACE. BED IN LOW POSITION, CALL LIGHT WITHIN REACH. PATIENT DENIES OTHER NEEDS AT THIS TIME. QUESTIONS AND CONCERNS ADDRESSED, SAFETY PRECAUTIONS IN PLACE.
[2019-06-02 07:19] LABS: BASOPHIL % 0.2 % (0-2); PLATELET COUNT 393 x10^3mcL (130-400); RED CELL DISTRIBUTION WIDTH 14.2 % (11.5-14.5)
[2019-06-02 07:38] LABS: ALBUMIN 2.7 g/dL (3.4-5.0); ALKALINE PHOSPHATASE 71 U/L (46-116); ALT/SGPT 164 U/L (16-63); AST/SGOT 96 U/L (15-37); CALCIUM 9.7 mg/dL (8.5-10.1); CARBON DIOXIDE 27.5 mmol/L (21-32); CHLORIDE SERUM 101 mmol/L (98-107); CREATININE SERUM 1.2 mg/dL (0.7-1.3); GFR1 > 60 mL/min; GLUCOSE SERUM 125 mg/dL (74-106); MAGNESIUM 2.1 mg/dL (1.8-2.4); PHOSPHOROUS 4.2 mg/dL (2.5-4.9); POTASSIUM SERUM 3.7 mmol/L (3.5-5.1); SODIUM SERUM 142 mmol/L (136-145)
--- NOTE | 2019-06-02 07:52 | NUR ---
RECEIVED BEDSIDE REPORT FROM TELEVISION PRESENTER NURSE. PATIENT IS STABLE ON ROM AIR, NO APPARENT SIGNS OF PAIN, SOB, OR RESPIRATORY DISTRESS. IV TO LEFT WRIST IS INFUSING D5, 1/2NS AT 50ML/HR. NO EDEMA OR ERYTHEMA NOTED AT SITE. SCD'S IN PLACE. BED IN LOW POSITION, CALL LIGHT WITHIN REACH. PATIENT DENIES OTHER NEEDS AT THIS TIME. QUESTIONS AND CONCERNS ADDRESSED, SAFETY PRECAUTIONS IN PLACE.
--- NOTE | 2019-06-02 08:09 | NUR ---
MADE PROJ MGR MICHAEL AWARE OF WBC LABS. NO FURTHER ORDERS AT THIS TIME.
[2019-06-02 09:00] VITALS: BP 173/97
--- NOTE | 2019-06-02 09:07 | NUR ---
ADMINISTERED MORNING MEDICATION. PATIENT TOLORATED WELL. PATIENT DEUCATED ON NEED FOR MEDICATION, AND ADVERSE EFFECTS TO REPORT. PATIENT VERBALIZED UNDERSTANDING. QUESTIONS AAND CONCERNS ADDRESSED. SAFETY PRECAUTIONS IN PLACE. PATIENT DENIES OTHER NEEDS AT THIS TIME.
--- NOTE | 2019-06-02 09:30 | NUR ---
PATIENT C/O NAUSEA. PATIENT EDUCATED ON NEED FOR MEDICATION, AND ADVERSE EFFECTS TO REPORT. PATIENT VERBALIZED UNDERSTANDING. QUESTIONS AAND CONCERNS ADDRESSED. SAFETY PRECAUTIONS IN PLACE. PATIENT DENIES OTHER NEEDS AT THIS TIME.
--- NOTE | 2019-06-02 11:35 | NUR ---
XRAY AT BEDSIDE.
--- NOTE | 2019-06-02 11:48 | NUR ---
RIGOBERTO RODRIGUEZ AT BEDSIDE EXPLAINING DISCHARGE INSTRUCTIONS.
--- NOTE | 2019-06-02 12:17 | NUR ---
ADMINISTERED MEDICATION. PATIENT TOLORATED WELL. PATIENT EDUCATED ON NEED FOR MEDICATION, AND ADVERSE EFFECTS TO REPORT. PATIENT VERBALIZED UNDERSTANDING. QUESTIONS AAND CONCERNS ADDRESSED. SAFETY PRECAUTIONS IN PLACE. PATIENT DENIES OTHER NEEDS AT THIS TIME. FAMILY AT BEDSIDE.
--- NOTE | 2019-06-02 12:45 | NUR ---
MD HOFF AT BEDSIDE TO REMOVE KELLE DRAIN. REMOVED KELLE DRAIN AND DRESSED IT WITH 4X4 GAUZE. PATIENT TOLORATED WELL.
--- NOTE | 2019-06-02 12:47 | NUR ---
MD VIERA REMOVED ALL DRESSINGS AND APPLIED 4X4 DRESSINGS TO ALL WOUNDS.
--- NOTE | 2019-06-02 13:20 | NUR ---
Initial Nutrition Assessment: 221/A KAMALJIT LARA LR [place] Dx: Abd pain PMHx: HTN PSHx: None Labs: BG 125H, AST 96H, ALT 164H, WBC 14.2H Meds: Difulcan, lactinex, norco, reglan, zofran Diet: low fat PO Intake: breakfast 0% Ht: 177.8 cm (70") Wt: 99.7 kg (219#) BMI: 31.6 kg/m2 Bed scale: 99.7 kg IBW: 166# (75 kg) %IBW: 131 UBW: 219# Age: 53/M Food Allergies: NKFA Skin: incision to abd Pasquale: 21 Edema: none GI: KELLE drain, s/p open anna Last BM: 05/26 Per H&P, Pt is a 53 year old male with PMH of HTN presents with left sided abdominal pain for 1 day. Patient reports having this pain more than a month ago where he went to the ER and was diagnosed with gastritis. Patient describes the pain as sharp, constant, and non-radiating. He rates the pain as 10/10. RDN Visit (06/02): Patient was alert and oriented and said that his appetite is poor and he feels nauseous. He has not eaten anything for breakfast this morning and consumed very little amount of dinner last night per daughter who was at bedside. Per progress note (06/02) Patient continues to have excessive drainage 495cc from evening shift. Patient is POD #4 open anna with . Problem with: N/V/D/C: yes (N/V) Problems with: Chewing/Swallowing: no Current appetite: poor Recent wt change: none %wt change: N/A Vitamin/Supplement use: fish oils, omega-3 Special diet at home: Regular Physical activity: walking Nutrition education given: Low sodium diet education was provided. Concepts such as label reading, high sodium foods, and avoidance of processed foods were discussed. Food-drug interactions: none Education given: no Estimated Nutritional Needs Based on adjusted body weight 81 kg Energy: 9486-7325 kcal/d (20-25 kcal/kg) Protein: 64.8- 81 g/d (0.8-1.0 g/kg) - preserve LBM Fluid: 5875-5648 ml/d (1 ml/kcal) or per doctor Nutrition Diagnosis 1. Inadequate oral intake related to poor appetite as evidenced by self- reported poor PO. Intervention 1. Recommend Ensure Enlive BID 2. Recommend continuing low fat diet Monitor/Evaluate Goal: PO intake at least 75% of estimated needs Monitor: PO intake, Labs, GI function F/U in 2-3 days as high risk /-5
--- NOTE | 2019-06-02 13:21 | NUR ---
1. Recommend Ensure Enlive BID 2. Recommend continuing low fat diet
--- NOTE | 2019-06-02 14:02 | NUR ---
PATIENT IS RESTING COMFORTABLY IN BED. NO APPARENT SIGNS OF PAIN, SOB, OR RESPIRATORY DISTRESS. PATIENT DENIES PAIN AT THIS TIME. CALL LIGHT WITHIN REACH. BED IN LOW POSITION, SAFETY PRECAUTIONS IN PLACE. QUESTIONS AND CONCERNS ADDRESSED.
--- NOTE | 2019-06-02 17:09 | NUR ---
PATIENT RESUDED MEDICATION DUE TO PREVIOUS ADMINISTRATION OF THIS MEDICATION THAT CAUSED NAUSEA. PATIENT EDUCATED ON NEED FOR MEDICATION, AND ADVERSE EFFECTS TO REPORT. PATIENT VERBALIZED UNDERSTANDING. QUESTIONS AND CONCERNS ADDRESSED. SAFETY PRECAUTIONS IN PLACE. PATIENT DENIES OTHER NEEDS AT THIS TIME. FAMILY AT BEDSIDE.
[2019-06-02 18:03] VITALS: BP 140/89
--- NOTE | 2019-06-02 18:40 | NUR ---
PATIENT IS STABLE NO APPARENT SIGNS OF PAIN, SOB, OR RESPIRATORY DISTRESS. PATIENT DENIES PAIN, DIZZINESS, N/V. CALL LIGHT WITHIN REACH, BED IN LOW POSITION, ON ROOM AIR. SCD'S AT BEDSIDE. FAMILY AT BEDSIDE. PATIENT DENIES OTHER NEEDS AT THIS TIME. QUESTIONS AND CONCERNS ADDRESSED, SAFETY PRECAUTIONS IN PLACE. WILL ENDORSE CARE TO CLINICAL LAB ASSISTANT NURSE.
--- NOTE | 2019-06-02 20:02 | NUR ---
RECEIVED PATIENT IN BED AWAKE, ALERT AND ORIENTED WITH NO C/0 POST OPERATIVE PAIN. INCISION TO ABDOMEN WITH CHERI IN PLACE OPEN TO AIR. NO DRAINAGE NOTED. ABDOMEN ROUND AND NONTENDER WITH ACTIVE BS. IV HEPLOCKED TO LEFT WRIST. AT BEDSIDE. WILL CONTINUE TO MONITOR.
[2019-06-02 21:00] VITALS: BP 144/91
--- NOTE | 2019-06-02 23:40 | NUR ---
APPEARS SLEEPING WITH EYS CLOSED, NO INDICATION OF DISCOMFORT NOTED.
--- NOTE | 2019-06-03 05:26 | NUR ---
NO SIGNIFICANT CHANGES IN CONDITION NOTED. CHECKED AT INTERVALS FOR EED AND COMFORT. ALL NEEDS ATTENDED.
[2019-06-03 06:15] VITALS: BP 131/90
[2019-06-03 06:19] LABS: BASOPHIL % 0.4 % (0-2); PLATELET COUNT 381 x10^3mcL (130-400); RED CELL DISTRIBUTION WIDTH 14.3 % (11.5-14.5)
[2019-06-03 06:32] LABS: CALCIUM 9.5 mg/dL (8.5-10.1); CARBON DIOXIDE 28.9 mmol/L (21-32); CHLORIDE SERUM 102 mmol/L (98-107); CREATININE SERUM 1.2 mg/dL (0.7-1.3); GFR1 > 60 mL/min; GLUCOSE SERUM 100 mg/dL (74-106); POTASSIUM SERUM 3.9 mmol/L (3.5-5.1); SODIUM SERUM 139 mmol/L (136-145)
--- NOTE | 2019-06-03 08:51 | NUR ---
PT LAYING IN BED. AA/OX4. REPORTS MILD GENERALIZED ABD. DISCOMFORT, RATES 4/10, REPORTS TOLERABLE AT THIS TIME, DENIES N/V. NO SOB ON ROOM AIR. TOLERATING LOW FAT DIET WELL. NO CHEST PAIN. CALM/COOPERATIVE. BED IN LOW POSITION. CALL LIGHT WITHIN REACH. IV TO LFA WNL. NO REDNESS, NO SWELLING, NO INFILTRATION. REPORTS LOOSE STOOL X2, BROWN. INSTRUCTED TO USE CALL LIGHT TO CALL FOR ASSISTANCE PRN. VERBALIZED UNDERSTANDING. WILL CONTINUE TO MONITOR.
[2019-06-03 09:45] VITALS: BP 143/84
[2019-06-03 12:48] LABS: BILIRUBIN DIRECT 0.27 mg/dL (0.0-0.2); BILIRUBIN TOTAL 0.6 mg/dL (0.20-1.00); TOTAL PROTEIN, SERUM 6.8 g/dL (6.4-8.2)
[2019-06-03 12:49] LABS: ALBUMIN 2.8 g/dL (3.4-5.0)
[2019-06-03 15:26] VITALS: BP 143/84
[2019-06-03] MEDS ORDERED: AMITIZA24 MC1 PO (15:52)
[2019-06-03] MEDS ORDERED: ZOF4 PO (15:53)
--- NOTE | 2019-06-03 17:45 | NUR ---
PT BEING DISCHARGED TO HOME. AWAKE, ALERT, ORIENTED X4. NO ABD. PAIN. NO N/V. NO SOB ON ROOM AIR. NO CHEST PAIN. ABDOMINAL INCISIONS CLEAN/DRY. SEE CHART FOR DISCHARGE PHOTO. CHERI IN TACT. DRESSING TO SITE OF KELLE DRAIN CHANGED, CDI. DISCHARGE EDUCATION PROVIDED TO PATIENT AND , INSTRUCTED TO FOLLOW UP WITH PCP AND DR. HOFF AT UPCOMING APPOINTMENTS. VERBALIZED UNDERSTANDING. IV WNL TO LFA, NO REDNESS, NO SWELLING, NO INFILTRATION. CATHETER IN TACT. PRESSURE APPLIED. SITE WNL. BELONGINGS WITH PATIENT. PRESCRIPTION WITH PATIENT. TAKEN TO LOBBY BY CHANDRA STONE BY WHEELCHAIR.
== END 2019-06-03 17:49 | disposition home or self-care (01) | DRG 414 ==
LOC: ED 13:57 → MU 17:27
PROVIDERS: Emergency Medicine; Internal Medicine; Internal Medicine Gastroenterology; Surgery; ADMIT Internal Medicine
PROC: 0DNW0ZZ Release Peritoneum, Open Approach (ICD-10-PCS; 2019-05-28)
PROC: BF101ZZ Fluoroscopy of Bile Ducts using Low Osmolar Contrast (ICD-10-PCS; 2019-05-28)
PROC: 0DB58ZX Excision of Esophagus, Via Natural or Artificial Opening Endoscopic, Diagnostic (ICD-10-PCS; 2019-05-28)
PROC: 0DB68ZX Excision of Stomach, Via Natural or Artificial Opening Endoscopic, Diagnostic (ICD-10-PCS; 2019-05-28)
PROC: 0FT40ZZ Resection of Gallbladder, Open Approach (ICD-10-PCS; principal; 2019-05-28 08:00)
PROC: 0FJ44ZZ Inspection of Gallbladder, Percutaneous Endoscopic Approach (ICD-10-PCS; 2019-05-28 08:00)
DX: K80.00 Calculus of gallbladder with acute cholecystitis without obstruction (principal); N17.0 Acute kidney failure with tubular necrosis; K52.9 Noninfective gastroenteritis and colitis, unspecified; I10 Essential (primary) hypertension; F17.220 Nicotine dependence, chewing tobacco, uncomplicated; K20.9 Esophagitis, unspecified; K76.0 Fatty (change of) liver, not elsewhere classified; E66.9 Obesity, unspecified; E87.6 Hypokalemia; Z53.31 Laparoscopic surgical procedure converted to open procedure; Z68.34 Body mass index [BMI] 34.0-34.9, adult
CPT/HCPCS: 43235; 78226; 83880; 84439; 87046; 87046-59; 94150; A9537; G0378; J0330; J0696; J1170; J1200; J1610; J1885; J1956; J2175; J2250; J2270; J2310; J2405; J2543; J2704; J2710; J2765; J3010; J3490; J7030; J7120; Q0092; Q9967